=== PATIENT | male | born 1995 | race Caucasian/White ===

== ENCOUNTER 2021-02-01 14:35 | Emergency (ER) | payer OTHER ==
[~2021-02-01] VITALS: Ht 182.9 cm; Wt 127.0 kg
--- NOTE | 2021-02-01 14:35 | NUR ---
Patient BIBA BLS, transferred to bed 3. RN evaluating the patient at bedside.
[2021-02-01 14:39] VITALS: BP 109/80
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
--- NOTE | 2021-02-01 14:43 | NUR ---
TEMO Boyd at pt bedside for further evaluation.
--- NOTE | 2021-02-01 14:53 | NUR ---
photovoltaic technician at pt bedside for further evaluation.
[2021-02-01] MEDS ORDERED: KETOROLAC 30 MG/ML VIAL IM ONE (15:55)
[2021-02-01] MEDS ORDERED: NAPR-54 PO (16:08)
--- NOTE | 2021-02-01 16:12 | NUR ---
PT PLACED IN RIGHT WRIST VOLAR VELCRO SPLINT, CMS WNL BEFORE AND AFTER, PA NOTIFIED
[2021-02-01 16:24] VITALS: BP 109/80
--- NOTE | 2021-02-01 16:25 | NUR ---
Patient discharged with v/s stable. Written and verbal after care instructions given and explained. Patient alert, oriented and verbalized understanding of instructions. Ambulatory with steady gait. All questions addressed prior to discharge. ID band removed. Patient advised to follow up with PMD. Rx of naproxen 500mg PO BID PRN pain given. Patient educated on indication of medication including possible reaction and side effects. Opportunity to ask questions provided and answered.
== END 2021-02-01 16:26 | disposition home or self-care (01) ==
LOC: MED 14:35
DX: S63.8X1A Sprain of other part of right wrist and hand, initial encounter (principal); V98.8XXA Other specified transport accidents, initial encounter; Y93.89 Activity, other specified; Y92.89 Other specified places as the place of occurrence of the external cause; Y99.8 Other external cause status
CPT/HCPCS: 73110; 96372; 99283; J1885